=== PATIENT | female | born 1965 | race Caucasian/White ===

== ENCOUNTER 2022-02-07 21:46 | Emergency (ER) | payer OTHER ==
[~2022-02-07] VITALS: Ht 154.9 cm; Wt 59.0 kg
[~2022-02-07 21:46] MED LIST: PROZAC; TRAZADONE
[2022-02-07] MEDS ORDERED: KETOROLAC TROMETHAMINE 60 MG INJ IM ONE ×2 (22:00→22:40)
[2022-02-07] MEDS ORDERED: HYDROMORPHONE 1 MG/1 ML DISP.SYRIN IM ONE (22:00)
[2022-02-07] MEDS ORDERED: PROCHLORPERAZINE MALEATE 5 MG TABLET PO ONE (22:00)
[2022-02-07] MEDS ORDERED: PROCHLORPERAZINE MALEATE 5 MG TABLET ONE (22:18)
[2022-02-07] MEDS ORDERED: HYDROMORPHONE 1 MG/1 ML DISP.SYRIN ONE (22:19)
[2022-02-07] MEDS ORDERED: HYDROMORPHONE 2 MG/1 ML DISP.SYRIN ONE (22:20)
[2022-02-07] MEDS ORDERED: OXYC-128 PO (22:58)
[2022-02-08] MEDS ORDERED: HYDROMORPHONE 1 MG/1 ML DISP.SYRIN IM ONE (04:00)
[2022-02-08] MEDS ORDERED: HYDROMORPHONE 1 MG/1 ML DISP.SYRIN ONE (04:19)
[2022-02-08] MEDS ORDERED: HYDROMORPHONE 2 MG/1 ML DISP.SYRIN ONE (04:19)
--- NOTE | 2022-02-08 06:45 | NUR ---
[facility] arrived to ER to transport patient back to home, report and documentation given to EMT, VSS, no acute signs of distress, all belongings taken, patient given CD and xray results.
[2022-02-08 07:32] VITALS: BP 133/96
== END 2022-02-08 07:32 | disposition home or self-care (01) ==
LOC: ER 21:46
DX: S32.512A Fracture of superior rim of left pubis, initial encounter for closed fracture (principal); S32.592A Other specified fracture of left pubis, initial encounter for closed fracture; V18.4XXA Pedal cycle driver injured in noncollision transport accident in traffic accident, initial encounter; Y93.55 Activity, bike riding; Y92.89 Other specified places as the place of occurrence of the external cause; Z87.891 Personal history of nicotine dependence; Z79.899 Other long term (current) drug therapy
CPT/HCPCS: 71045; 72170; 73502; A4663; J1170; J1885; J8499